=== PATIENT | female | born 1955 | race Caucasian/White ===

== ENCOUNTER 2020-09-07 15:22 | Outpatient (CLI) | payer BC, SELFPAY ==
--- NOTE | 2020-09-07 15:30 | MM_ITS ---
WS: [id number] SCREENING DIGITAL MAMMOGRAM WITH CAD HISTORY: SCREENING COMPARISON: 08/12/2019, 07/27/2018 Bilateral CC and MLO views submitted. Computer aided detection analyzed. Breast composition: There are scattered areas of fibroglandular density. 8mm rounded nodule in the ce ntral LEFT breast seen best on the CC projection probably above the nipple line. Slightly more promin ent and evident as compared to the prior study from 08/12/2019. No suspicious calcifications. MM/[place] [id number] IMPRESSION: BI-RADS: 0-Incomplete: Need additional imaging evaluation FOLLOW UP: Need Additional Imaging LEFT breast: Spot compression views (CC and MLO). True ML. Ultrasound to follow if abnormality persists.
== END 2020-09-07 15:23 | disposition home or self-care (01) ==
LOC: RADSHAW 15:28
PROVIDERS: PCP Family Medicine; Visit Provider Family Medicine
DX: Z12.31 Encounter for screening mammogram for malignant neoplasm of breast (principal); N63.20 Unspecified lump in the left breast, unspecified quadrant
CPT/HCPCS: 77067

== ENCOUNTER 2020-10-04 08:00 | Outpatient (CLI) | payer BC, SELFPAY ==
--- NOTE | 2020-10-04 08:04 | MM_ITS ---
WS: [id number] ADDITIONAL VIEWS DIAGNOSTIC LEFT MAMMOGRAM HISTORY: LT BREAST NODULE COMPARISON: 09/07/2020, 08/12/2019, 07/27/2018, 04/01/2017 Spot compression views LEFT breast in CC, MLO projections and true ML submitted. The asymmetry in the anterior breast becomes less apparent. There is still an area of increased densi ty but this density is now very similar to prior studies dating back to 2016 and 2017. MM/[place] [id number] IMPRESSION: BI-RADS: 2-Benign FOLLOW UP: 1 Year Follow-up
== END 2020-10-04 08:01 | disposition home or self-care (01) ==
LOC: RADSHAW 08:03
PROVIDERS: PCP Family Medicine; Visit Provider Family Medicine
DX: N63.20 Unspecified lump in the left breast, unspecified quadrant (principal); N64.89 Other specified disorders of breast
CPT/HCPCS: 77065

== ENCOUNTER 2021-12-28 06:57 | Outpatient (CLI) | payer BC, SELFPAY ==
--- NOTE | 2021-12-28 07:06 | MM_ITS ---
WS: [email or web address] BILATERAL DIGITAL SCREENING MAMMOGRAPHY WITH CAD CLINICAL INFORMATION: SCREENING HISTORY: Screening mammogram. No current complaints. COMPARISON: September 07, 2020 TECHNIQUE: Bilateral CC and MLO views. FINDINGS: Scattered fibroglandular densities bilaterally. Vascular calcification. No suspicious focal mass, asy mmetry, calcifications, or architectural distortion. No evidence of malignancy. MM/[place] [id number] IMPRESSION: BI-RADS: 2-Benign FOLLOW UP: 1 Year Follow-up Recommend return to annual screening mammography.
== END 2021-12-28 06:58 | disposition home or self-care (01) ==
PROVIDERS: PCP Family Medicine; Visit Provider Family Medicine
DX: Z12.31 Encounter for screening mammogram for malignant neoplasm of breast (principal)
CPT/HCPCS: 77067

== ENCOUNTER 2022-10-24 13:38 | Outpatient (CLI) | payer BC, SELFPAY ==
--- NOTE | 2022-10-24 13:46 | XR_ITS ---
WS: [email or web address] SCREENING DEXA SCAN Edgar CLINICAL INFORMATION: Postmenopausal z78.0 COMPARISON: None. FINDINGS: The L1-L4 bone mineral density measures 1.170 g/cm2. This corresponds to a T score score of -0.1 and Z score of 0.9. Left femoral neck bone mineral density measures 0.918 g/cm2. This corresponds to a T score of -0.7 an d Z score of 0.1. Right femoral neck bone mineral density measures 0.937 g/cm2. This corresponds to a T score -0.6of an d Z score of 0.2. Mean femoral neck bone mineral density measures 0.927 g/cm2. This corresponds to a T score of -0.6 an d Z score of 0.1. XR/XR DEXA axial skeleton* [id number] IMPRESSION: Normal bone mineralization. Patient's FRAX calculated 10 year probability for major osteoporotic fracture i s 8.1 % and osteoporotic hip fracture is 0.7%.
== END 2022-10-24 13:39 | disposition home or self-care (01) ==
LOC: RAD 13:39
PROVIDERS: PCP Family Medicine; Visit Provider Family Medicine
DX: Z78.0 Asymptomatic menopausal state (principal)
CPT/HCPCS: 77080

== ENCOUNTER 2022-12-30 15:03 | Outpatient (CLI) | payer BC, SELFPAY ==
--- NOTE | 2022-12-30 15:10 | MM_ITS ---
WS: [email or web address] BILATERAL 3D TOMOSYNTHESIS DIGITAL SCREENING MAMMOGRAPHY WITH CAD CLINICAL INFORMATION: SCREENING HISTORY: Screening mammogram. No current complaints. COMPARISON: 2021 TECHNIQUE: Bilateral CC and MLO views. FINDINGS: Scattered fibroglandular densities bilaterally. No suspicious focal mass, asymmetry, calcifications, or architectural distortion. No evidence of malignancy. Punctate calcifications. Vascular calcificati ons. MM/[place] [id number] IMPRESSION: BI-RADS: 2-Benign FOLLOW UP: 1 Year Follow-up Recommend return to annual screening mammography.
== END 2022-12-30 15:04 | disposition home or self-care (01) ==
LOC: RAD 15:03
PROVIDERS: PCP Family Medicine; Visit Provider Family Medicine
DX: Z12.31 Encounter for screening mammogram for malignant neoplasm of breast (principal)
CPT/HCPCS: 77063; 77067

== ENCOUNTER 2024-01-02 08:39 | Outpatient (CLI) | payer MEDICARE, SELFPAY ==
--- NOTE | 2024-01-02 08:44 | MM_ITS ---
WS: [email or web address] BILATERAL SCREENING DIGITAL TOMOSYNTHESIS MAMMOGRAM WITH CAD HISTORY: SCREENING COMPARISON: 12/30/2022, 12/28/2021 Bilateral CC and MLO views with tomosynthesis and synthetic mammography submitted. Computer aided det ection analyzed. Breast composition: There are scattered areas of fibroglandular density. No suspicious masses, microc alcifications or architectural distortion. IMPRESSION: MM/[place] [id number] BI-RADS: 1-Negative FOLLOW UP: 1 Year Follow-up
== END 2024-01-02 08:40 | disposition home or self-care (01) ==
PROVIDERS: PCP Family Medicine; Visit Provider Family Medicine
DX: Z12.31 Encounter for screening mammogram for malignant neoplasm of breast (principal); R92.323 Mammographic fibroglandular density, bilateral breasts
CPT/HCPCS: 77063; 77067

== ENCOUNTER 2025-01-03 07:22 | Outpatient (CLI) | payer MEDICARE, SELFPAY ==
--- NOTE | 2025-01-03 07:26 | MM_ITS ---
WS: [email or web address] SCREENING DIGITAL BREAST TOMOSYNTHESIS MAMMOGRAM WITH CAD HISTORY: SCREENING COMPARISON: 01/02/2024, 12/30/2022 Bilateral CC and MLO with tomosynthesis and synthetic mammography submitted. Computer aided detection analyzed. Breast composition: There are scattered areas of fibroglandular density. Focal irregular mass measuring 8 x 5 mm in the anterior LEFT breast posterior to the nipple. No definite corresponding abnormality is noted on the CC projection. There are also diffuse calcifications associated with the mass. The remaining breasts are negative for any interval change. MM/MM [facility] tomosynthesis [id number] IMPRESSION: BI-RADS: 0 - Incomplete: Need additional imaging evaluation. FOLLOW UP: Need Additional Imaging LEFT breast: Spot compression views (CC and MLO). True ML. Ultrasound to follow if abnormality persists.
== END 2025-01-03 07:23 | disposition home or self-care (01) ==
LOC: RAD 07:24
PROVIDERS: PCP Family Medicine; Visit Provider Family Medicine
DX: Z12.31 Encounter for screening mammogram for malignant neoplasm of breast (principal); R92.323 Mammographic fibroglandular density, bilateral breasts; N63.20 Unspecified lump in the left breast, unspecified quadrant; R92.1 Mammographic calcification found on diagnostic imaging of breast
CPT/HCPCS: 77063; 77067

== ENCOUNTER 2025-02-08 10:56 | Outpatient (CLI) | payer MEDICARE, SELFPAY ==
--- NOTE | 2025-02-08 | MM_ITS ---
WS: [email or web address] ADDITIONAL VIEWS LEFT MAMMOGRAM WITH DIGITAL BREAST TOMOSYNTHESIS. LEFT breast ultrasound, limited HISTORY: ABNORMAL MAMMOGRAM COMPARISON: 01/03/2025, 01/02/2024 Spot compression views LEFT breast in CC, MLO projections and true ML submitted with digital breast tomosynthesis and SM. Breast composition: There are scattered areas of fibroglandular density. Asymmetry nearly completely resolves with spot compression views especially on the CC projection. There is very minimal remaining persistent glandular tissue on the lateral views. Ultrasound will be performed. LEFT breast ultrasound, limited. There is a small hypoechoic mass measuring 2 x 3 x 2 mm in the LEFT breast at 11:00, 1 cm from the nipple. This may correspond to the mammographic abnormality. This is not a simple cyst. The mcclendon are very slightly irregular. No increased vascularity. No additional abnormality. MM/MM diag [place] tomosynthesis [id number] IMPRESSION: BI-RADS: 4 - Suspicious Finding - Biopsy Should Be Considered. FOLLOW UP: Biopsy Recommended 1. Very small 2 x 3 x 2 mm mass LEFT breast at 11:00. This is not a simple cys t. Suggest ultrasound-guided biopsy at this time. This may be a complex cyst ve rsus early neoplasm. 2. Notified Gerardo Castle MD at 02/08/2025 12:18 PM.
--- NOTE | 2025-02-08 11:01 | US_ITS ---
WS: [email or web address] ADDITIONAL VIEWS LEFT MAMMOGRAM WITH DIGITAL BREAST TOMOSYNTHESIS. LEFT breast ultrasound, limited HISTORY: ABNORMAL MAMMOGRAM COMPARISON: 01/03/2025, 01/02/2024 Spot compression views LEFT breast in CC, MLO projections and true ML submitted with digital breast tomosynthesis and SM. Breast composition: There are scattered areas of fibroglandular density. Asymmetry nearly completely resolves with spot compression views especially on the CC projection. There is very minimal remaining persistent glandular tissue on the lateral views. Ultrasound will be performed. LEFT breast ultrasound, limited. There is a small hypoechoic mass measuring 2 x 3 x 2 mm in the LEFT breast at 11:00, 1 cm from the nipple. This may correspond to the mammographic abnormality. This is not a simple cyst. The mcclendon are very slightly irregular. No increased vascularity. No additional abnormality. US/US breast LT limited* [id number] IMPRESSION: BI-RADS: 4 - Suspicious Finding - Biopsy Should Be Considered. FOLLOW UP: Biopsy Recommended 1. Very small 2 x 3 x 2 mm mass LEFT breast at 11:00. This is not a simple cys t. Suggest ultrasound-guided biopsy at this time. This may be a complex cyst ve rsus early neoplasm. 2. Notified Gerardo Castle MD at 02/08/2025 12:18 PM.
== END 2025-02-08 10:57 | disposition home or self-care (01) ==
PROVIDERS: PCP Family Medicine; Visit Provider Family Medicine
DX: R92.8 Other abnormal and inconclusive findings on diagnostic imaging of breast (principal); R92.323 Mammographic fibroglandular density, bilateral breasts; N63.22 Unspecified lump in the left breast, upper inner quadrant
CPT/HCPCS: 76642; 77061; G0279

== ENCOUNTER 2025-03-30 11:05 | Outpatient (CLI) | payer MEDICARE, SELFPAY ==
--- NOTE | 2025-03-30 11:09 | US_ITS ---
WS: [email or web address] ULTRASOUND LEFT BREAST HISTORY: Patient presents for biopsy of an indeterminate lesion within the LEFT breast at 11:00, 1 cm from the nipple. COMPARISON: 02/08/2025 TECHNIQUE: 2-D and Doppler. There are very tiny hypoechoic focus reidentified but appears to slightly smaller in size. Due to its very small size and unconcerning features no biopsy will be performed. This was discussed with the patient and she is agreeable to follow-up in 6 months. During real-time imaging this appears slightly less concerning than on the prior examination. Suspect this is probably a small cyst or even a small focus of normal breast tissue surrounded by mammary fat. US/US breast LT limited* [id number] IMPRESSION: BI-RADS: 3- Probably Benign FOLLOW-UP: 6 Month Follow-up Recommend 6-month follow-up LEFT breast ultrasound, August 2025.
== END 2025-03-30 11:06 | disposition home or self-care (01) ==
PROVIDERS: PCP Family Medicine; Visit Provider Family Medicine
DX: N63.22 Unspecified lump in the left breast, upper inner quadrant (principal)
CPT/HCPCS: 19083; 76642

== ENCOUNTER 2025-08-16 12:15 | Outpatient (CLI) | payer MEDICARE, SELFPAY ==
--- NOTE | 2025-08-16 12:18 | US_ITS ---
WS: [email or web address] ULTRASOUND LEFT BREAST, limited HISTORY: BREAST NODULE COMPARISON: 03/30/2025, 02/08/2025 TECHNIQUE: 2-D and Doppler. Reidentified is a hypoechoic slightly lobulated nodule in the LEFT breast at 11:00, 1 cm from the nipple. Nodule measures 0.3 x 0.2 x 0.4 cm and is probably a small cyst or complex cyst. There has been no increase in size. No increased vascularity. US/US breast LT limited* [id number] IMPRESSION: BI-RADS: 3- Probably Benign FOLLOW-UP: 6 Month Follow-up Patient to return in 6 months for annual mammogram. Ultrasound LEFT breast shou ld be performed at the same time.
== END 2025-08-16 12:16 | disposition home or self-care (01) ==
LOC: RAD 12:16
PROVIDERS: PCP Family Medicine; Visit Provider Family Medicine
DX: N63.21 Unspecified lump in the left breast, upper outer quadrant (principal)
CPT/HCPCS: 76642

== ENCOUNTER 2025-10-26 15:02 | Outpatient (CLI) | payer MEDICARE, SELFPAY ==
--- NOTE | 2025-10-26 15:08 | XR_ITS ---
WS: [email or web address] SCREENING DEXA SCAN [facility] CLINICAL INFORMATION: OSTEOPOROSIS SCREENING COMPARISON: 2021 FINDINGS: The L1-L4 bone mineral density measures 1.105 g/cm2. This corresponds to a T score score of -0.6 and Z score of 0.5. Left femoral neck bone mineral density measures 0.877 g/cm2. This corresponds to a T score of -1.0 and Z score of 0.0. Right femoral neck bone mineral density measures 0.894 g/cm2. This corresponds to a T score -0.9of and Z score of 0.1. Mean femoral neck bone mineral density measures 0.885 g/cm2. This corresponds to a T score of -1.0 and Z score of 0.0. XR/XR DEXA axial skeleton* [id number] IMPRESSION: Normal bone mineralization lumbar spine. Osteopenia femoral necks. Patient's FRAX calculated 10 year probability for major osteoporotic fracture i s 9.5% and osteoporotic hip fracture is 1.2%. Bone density lumbar spine decreased -5.6% Bone density femoral necks decrease -4.5%
== END 2025-10-26 15:03 | disposition home or self-care (01) ==
LOC: RAD 15:05
PROVIDERS: PCP Family Medicine; Visit Provider Family Medicine
DX: Z13.820 Encounter for screening for osteoporosis (principal); M81.0 Age-related osteoporosis without current pathological fracture
CPT/HCPCS: 77080